=== PATIENT | female | born 1980 | race Caucasian/White ===

== ENCOUNTER 2017-11-06 08:55 | Emergency (ER) | payer OTHER ==
[~2017-11-06] VITALS: Ht 175.3 cm; Wt 65.9 kg
[2017-11-06 12:57] VITALS: BP 122/67
[2017-11-06] MEDS ORDERED: KLONOPIN0.5 M1 PO (13:08)
== END 2017-11-06 13:14 | disposition home or self-care (01) ==
LOC: EME 08:55
DX: F43.23 Adjustment disorder with mixed anxiety and depressed mood (principal)
CPT/HCPCS: 90839; 99281; 99284